=== PATIENT | male | born 1990 | race Caucasian/White ===

== ENCOUNTER 2018-02-23 18:00 | Emergency (ER) | payer SELFPAY ==
[~2018-02-23] VITALS: Ht 177.8 cm; Wt 100.0 kg
[~2018-02-23 18:00] MED LIST: CEPHALEXIN500 M1 PO
[2018-02-23 18:02] VITALS: BP 136/86; PULSE 81; TEMP 97.7
[2018-02-23] MEDS ORDERED: WELLBUTRIN XL300 M1 PO (18:05)
[2018-02-23] MEDS ORDERED: AMOXICILLIN 8751 TAB PO (19:13)
[2018-02-23] MEDS ORDERED: PREDNISONE20 MG PO (19:13)
== END 2018-02-23 19:44 | disposition home or self-care (01) ==
LOC: COL.ER 18:00
DX: J01.90 Acute sinusitis, unspecified (principal); F17.210 Nicotine dependence, cigarettes, uncomplicated; F12.90 Cannabis use, unspecified, uncomplicated
CPT/HCPCS: J7512

== ENCOUNTER 2020-10-16 03:00 | Emergency (ER) | payer SELFPAY ==
[~2020-10-16] VITALS: Ht 180.3 cm; Wt 88.6 kg
[~2020-10-16 03:00] MED LIST changes: +AMOXICILLIN 8751 TAB PO; +PREDNISONE20 MG PO; +WELLBUTRIN XL300 M1 PO
[2020-10-16 03:16] VITALS: TEMP 98.7
[2020-10-16 04:07] LABS: BASO # 0.1 (0.0-0.2); BASO % 0.8 % (0.0-2.0); EOS # 0.1 (0.0-0.7); EOS % 0.8 % (0-4.0); GRAN # 4.9 (1.4-6.5); GRAN % 66.2 % (42.2-75.2); HEMATOCRIT 43.2 % (42.0-52.0); HEMOGLOBIN 14.7 g/dl (13.5-18.0); LYMPH # 1.6 (1.2-3.4); LYMPH % 21.8 % (20.0-51.0); MEAN CELL VOLUME 92 fl (80.0-100.0); MEAN CORPUSCULAR HEMOGLOBIN 31 pg (27.0-31.0); MEAN CORPUSCULAR HGB CONC 34 g/dl (33.0-37.0); MEAN PLATELET VOLUME 9.6 fl (7.4-10.4); MONO # 0.8 (0.1-0.6); MONO % 10.1 % (1.7-9.3); PLATELET COUNT 254 K/mm3 (130-400); RED BLOOD COUNT 4.72 M/mm3 (4.20-5.60); REDCELL DISTRIBUTION WIDTH-CV 12.8 % (11.5-14.5)
[2020-10-16 04:18] LABS: BLOOD UREA NITROGEN 14 mg/dL (9-20); CREATININE, serum 0.84 (0.66-1.25); GLUCOSE 107 mg/dL (74-106)
[2020-10-16 04:19] LABS: ALANINE AMINOTRANSFERASE 37 U/L (4-49); ALBUMIN 4.6 gm/dL (3.5-5.0); ALKALINE PHOSPHATASE 58 U/L (50-136); ANION GAP 6 mmol/L (7-16); AST,SGOT 66 U/L (15-37); BILIRUBIN,TOTAL 2.4 mg/dL (0.0-1.0); CALCIUM 9.9 mg/dL (8.4-10.2); CARBON DIOXIDE 31 mmol/L (22-30); CHLORIDE 99 mmol/L (98-107); LIPASE 25 U/L (23-300); POTASSIUM 3.9 mmol/L (3.4-5.0); SODIUM 137 mmol/L (137-145); TOTAL PROTEIN 7.6 gm/dL (6.4-8.2)
[2020-10-16 04:20] LABS: ACETAMINOPHEN < 10 ug/mL (10-30); ALCOHOL(ethanol),MEDICAL < 10 mg/dL; SALICYLATE < 1.0 mg/dL
[2020-10-16 10:21] LABS: COLLECTION METHOD CLEAN CATCH
[2020-10-16 10:33] LABS: MUCOUS Present /lpf; PH 8 (5-8); SQUAMOUS EPITHELIAL None Seen /hpf; URINE APPEARANCE Clear; URINE BACTERIA Rare /hpf; URINE BILIRUBIN Negative (NEGATIVE); URINE BLOOD 3+ (NEGATIVE); URINE COLOR Yellow; URINE GLUCOSE Negative (NEGATIVE); URINE KETONE Negative (NEGATIVE); URINE LEUKOCYTE ESTERASE Negative (NEGATIVE); URINE NITRATE Negative (NEGATIVE); URINE PROTEIN(semi-quant) 1+ (NEGATIVE); URINE RBC 20-50 /hpf; URINE UROBILINOGEN Negative (NEGATIVE)
[2020-10-16 10:54] LABS: TRICYCLIC ANTIDEPRESS URINE NEGATIVE
[2020-10-16 12:23] VITALS: BP 115/95; PULSE 87
== END 2020-10-16 12:25 | disposition home or self-care (01) ==
LOC: COL.ER 03:00
PROVIDERS: Emergency Medicine
DX: F32.9 Major depressive disorder, single episode, unspecified (principal); Z79.2 Long term (current) use of antibiotics; Z79.52 Long term (current) use of systemic steroids

== ENCOUNTER 2021-08-02 18:04 | Emergency (ER) | payer SELFPAY ==
[~2021-08-02] VITALS: Ht 177.8 cm; Wt 100.0 kg
[2021-08-02 18:09] VITALS: TEMP 97.8
[2021-08-02] MEDS ORDERED: GENTAMICIN EYE D5 ML OD (18:34)
[2021-08-02 18:38] VITALS: BP 133/81; PULSE 74
== END 2021-08-02 18:38 | disposition home or self-care (01) ==
LOC: COL.ER 18:04
DX: S05.01XA Injury of conjunctiva and corneal abrasion without foreign body, right eye, initial encounter (principal); F17.210 Nicotine dependence, cigarettes, uncomplicated; X58.XXXA Exposure to other specified factors, initial encounter

== ENCOUNTER 2021-10-14 12:41 | Emergency (ER) | payer OTHER ==
[~2021-10-14] VITALS: Ht 177.8 cm; Wt 90.9 kg
[~2021-10-14 12:41] MED LIST changes: +GENTAMICIN EYE D5 ML OD
[2021-10-14 13:10] VITALS: TEMP 99
[2021-10-14] MEDS ORDERED: AMOXICILLIN 8751 TAB PO (14:44)
[2021-10-14] MEDS ORDERED: NORCO 325 MG-51 TAB PO (14:59)
[2021-10-14 15:23] VITALS: BP 126/84; PULSE 89
== END 2021-10-14 15:24 | disposition home or self-care (01) ==
LOC: COL.ER 12:41
DX: S62.601A Fracture of unspecified phalanx of left index finger, initial encounter for closed fracture (principal); W23.1XXA Caught, crushed, jammed, or pinched between stationary objects, initial encounter; Y99.0 Civilian activity done for income or pay

== ENCOUNTER 2021-11-05 13:00 | Outpatient (RCR) | payer OTHER ==
[~2021-11-05 13:00] MED LIST changes: +NORCO 325 MG-51 TAB PO
== END 2021-11-29 | disposition home or self-care (01) ==
LOC: WSOH
DX: Z48.01 Encounter for change or removal of surgical wound dressing (principal); S67.191D Crushing injury of left index finger, subsequent encounter; S62.601D Fracture of unspecified phalanx of left index finger, subsequent encounter for fracture with routine healing; Y99.0 Civilian activity done for income or pay

== ENCOUNTER 2022-05-06 11:18 | Emergency (ER) | payer OTHER ==
[~2022-05-06] VITALS: Ht 177.8 cm; Wt 100.0 kg
[2022-05-06 11:22] VITALS: TEMP 97.8
[2022-05-06 12:27] LABS: COLLECTION METHOD CLEAN CATCH
[2022-05-06 12:34] LABS: BASO # 0.1 K/mm3 (0.0-0.2); BASO % 0.6 % (0.0-2.0); EOS # 0.1 K/mm3 (0.0-0.7); EOS % 0.9 % (0.0-4.0); GRAN # 9.6 K/mm3 (1.4-6.5); GRAN % 76.7 % (42.2-75.2); HEMATOCRIT 43.5 % (42.0-52.0); HEMOGLOBIN 14.8 g/dl (13.5-18.0); LYMPH # 1.9 K/mm3 (1.2-3.4); MEAN CELL VOLUME 90 fl (80.0-100.0); MEAN CORPUSCULAR HEMOGLOBIN 31 pg (27-31); MEAN CORPUSCULAR HGB CONC 34 g/dl (33.0-37.0); MEAN PLATELET VOLUME 9.6 fl (7.4-10.4); MONO # 0.8 K/mm3 (0.1-0.6); MONO % 6.5 % (1.7-9.3); PLATELET COUNT 291 K/mm3 (130-400); RED BLOOD COUNT 4.83 M/mm3 (4.20-5.60); REDCELL DISTRIBUTION WIDTH-CV 12.3 % (11.5-14.5)
[2022-05-06 12:39] LABS: MUCOUS Present (NOT PRESENT); PH 7 (5-8); SQUAMOUS EPITHELIAL None Seen /hpf (0-10); URINE APPEARANCE Hazy (CLEAR/HAZY); URINE BACTERIA None Seen /hpf (NONE SEEN); URINE BILIRUBIN Negative (NEGATIVE); URINE BLOOD Negative (NEGATIVE); URINE COLOR Yellow (YELLOW); URINE GLUCOSE Negative (NEGATIVE); URINE KETONE Negative (NEGATIVE); URINE LEUKOCYTE ESTERASE Negative (NEGATIVE); URINE NITRATE Negative (NEGATIVE); URINE PROTEIN(semi-quant) 1+ (NEGATIVE); URINE UROBILINOGEN Negative (NEGATIVE)
[2022-05-06 12:55] LABS: ALBUMIN 4.3 gm/dL (3.5-5.0); BILIRUBIN,TOTAL 1.2 mg/dL (0.2-1.2); CALCIUM 9.5 mg/dL (8.4-10.2); CREATININE, serum 0.87 mg/dL (0.72-1.25); TOTAL PROTEIN 7.2 gm/dL (6.2-8.1)
[2022-05-06 15:32] VITALS: BP 125/78; PULSE 70
== END 2022-05-06 15:34 | disposition home or self-care (01) ==
LOC: COL.ER 11:18
PROVIDERS: Nurse Practitioner Family
DX: S52.102A Unspecified fracture of upper end of left radius, initial encounter for closed fracture (principal); T23.212A Burn of second degree of left thumb (nail), initial encounter; T23.222A Burn of second degree of single left finger (nail) except thumb, initial encounter; T31.0 Burns involving less than 10% of body surface; S20.312A Abrasion of left front wall of thorax, initial encounter; S70.212A Abrasion, left hip, initial encounter; F17.210 Nicotine dependence, cigarettes, uncomplicated; W86.8XXA Exposure to other electric current, initial encounter; W11.XXXA Fall on and from ladder, initial encounter
CPT/HCPCS: J1885; J7030

== ENCOUNTER 2022-05-27 14:38 | Outpatient (RCR) | payer OTHER | END 2022-05-29 | disposition home or self-care (01) | LOC: WSOH | DX: M54.50 Low back pain, unspecified (principal); Y99.0 Civilian activity done for income or pay ==